=== PATIENT | male | born 1970 | race African-American/Black ===

== ENCOUNTER 2017-12-12 21:07 | Inpatient (IN) ==
[2017-12-12] MEDS ORDERED: Sod Chloride 0.9% Inj 1,000 ML IV.SIG ONE (21:31)
[2017-12-12] MEDS ORDERED: Aluminum/Magnesium/Simethacone Susp 30 ML UDC PO ONE (21:58)
--- NOTE | 2017-12-12 22:03 | XR ---
EXAM DATE: 12/12/2017 9:31 PM EDT AGE/SEX: 47 years / Male INDICATIONS: Chest pain starting today CLINICAL DATA: This is the patient's initial encounter. Patient reports that signs and symptoms have been present for 1 day and indicates a pain score of 8/10. MEDICAL/SURGICAL HISTORY: Chronic obstructive pulmonary disease. None. COMPARISON: No prior exams available for comparison. FINDINGS: A single AP view of the chest demonstrates the lungs to be symmetrically aerated without evidence of mass, infiltrate or effusion. The cardiomediastinal contours are unremarkable. Osseous structures a re intact. CONCLUSION: No acute cardiopulmonary process. Electronically signed by: Oneal Gomez MD 12/12/2017 10:02 PM EDT
[2017-12-12 22:10] LABS: Baso % (Auto) 0.5 % (0.0-2.0); Eos # (Auto) 0.1 th/mm3 (0.0-0.4); Eos % (Auto) 1.9 % (0.0-4.0); Hematocrit 43.8 % (39.0-51.0); Hemoglobin 14.8 gm/dL (13.0-17.0); Lymph # (Auto) 1.9 th/mm3 (1.0-4.8); Lymph % (Auto) 26.7 % (9.0-44.0); Mean Corpuscular HGB Conc 33.8 % (32.0-36.0); Mean Corpuscular Hemoglobin 27.4 pg (27.0-34.0); Mean Corpuscular Volume 81.1 fL (80.0-100.0); Mean Platelet Volume 8.1 fL (7.0-11.0); Mono # (Auto) 0.8 th/mm3 (0.0-0.9); Mono % (Auto) 10.7 % (0.0-8.0); Neut # (Auto) 4.4 th/mm3 (1.8-7.7); Neut % (Auto) 60.2 % (16.0-70.0); Platelet Count 247 th/mm3 (150-450); White Blood Count 7.2 th/mm3 (4.0-11.0)
[2017-12-12 22:26] LABS: Anion Gap 10 meq/L (5-15)
[2017-12-12 22:37] LABS: Alanine Aminotransferase 49 U/L (12-78); Alkaline Phosphatase 61 U/L (45-117); Aspartate Aminotransferase 25 U/L (15-37); Blood Urea Nitrogen 16 mg/dL (7-18); Calcium 9.2 mg/dL (8.5-10.1); Carbon Dioxide 28.7 meq/L (21.0-32.0); Chloride 99 meq/L (98-107); Glomerular Filtration Rate 88 mL/min (>89); Glucose,Random 94 mg/dL (74-106); Lipase 104 U/L (73-393); Magnesium 1.9 mg/dL (1.5-2.5); Sodium 138 meq/L (136-145); Total Protein 8.2 g/dL (6.4-8.2)
--- NOTE | 2017-12-12 22:38 | ED ---
HPI General Chief complaint: Abdominal Pain Stated complaint: Chest Pain Time Seen by Provider: 12/12/17 21:24 Source: patient Mode of arrival: EMS Limitations: no limitations History of Present Illness HPI narrative: 47 YO M with PMH of KERON, BPH, HTN presents to the ED via EMS for evaluation of epigastric pain. Sudden onset ~4pm today. Described as sharp. Accompanied by diaphoretic palms and SOB. He states that he was on a plane at the time. There was a doctor on board who evaluated him and gave him 2 aspirin. Upon landing and attempting to depart the aircraft the patient had an episode of 7/10 RLQ pain. This lasted a few minutes before resolving spontaneously. On presentation the patient states that the pain is "minimal." He denies recent history of fevers, chills, chest pain, palpitations, N/V, dysuria, hematuria, back pain. He is a nonsmoker. He states that he is noncompliant with his BiPap at night. He endorses fatal OH in a grandfather age~40. He endorses OH in a second grandfather later in life. He has never had a stress test. Related Data Home Medications Medication Instructions Recorded Confirmed amlodipine 10 mg PO DAILY 12/12/17 12/12/17 indapamide 2.5 mg PO QAM 12/12/17 12/12/17 potassium chloride 10 meq PO BID 12/12/17 12/12/17 tamsulosin [Flomax] 0.4 mg PO DAILY 12/12/17 12/12/17 Allergies Allergy/AdvReac Type Severity Reaction Status Date / Time SEAFOOD Allergy Anaphylaxis Uncoded 12/12/17 21:23 Review of Systems ROS: all other systems reviewed are negative FOR[facility]LY [facility] Medical History Medical History HTN (hypertension) (Acute) History of BPH (Acute) Surgical History Surgical History History of hernia repair (Acute) Social History Social History Substance History: No History of Abuse Second Hand Smoke Exposure: No Smoking Status: Never smoker How Often Do You Have a Drink Containing Alcohol: Monthly or less Recent Travel in [facility] within the Last 8 Weeks: No Recent Out of Country Travel within the Last 8 Weeks: No Immunization History Tetanus Immunization: >5 Years Exam Narrative Exam Narrative: GENERAL: Well-nourished, well-developed -[place] male no acute distress. SKIN: Focused skin assessment warm/dry. HEAD: Atraumatic. Normocephalic. EYES: Pupils equal and round. No scleral icterus. No injection or drainage. ENT: No nasal bleeding or discharge. Mucous membranes pink and moist. NECK: Trachea midline. No JVD. CARDIOVASCULAR: Regular rate and rhythm. No murmur appreciated. CHEST: Nontender throughout without deformity or crepitus. No retractions RESPIRATORY: No accessory muscle use. Clear to auscultation. Breath sounds equal bilaterally. GASTROINTESTINAL: Abdomen soft, nondistended. Hepatic and splenic margins not palpable. Mild tenderness to palpation of the left lower quadrant. Active bowel sounds. MUSCULOSKELETAL: No obvious deformities. No clubbing. No cyanosis. No edema. NEUROLOGICAL: Awake and alert. No obvious cranial nerve deficits. Motor grossly within normal limits. Normal speech. PSYCHIATRIC: Appropriate mood and affect; insight and judgment normal. Course Initial Documented Vital Signs Temperature 98.2 F 12/12/17 21:16 Pulse Rate 85 12/12/17 21:16 Respiratory Rate 16 12/12/17 21:16 Blood Pressure 145/85 H 12/12/17 21:16 Pulse Oximetry 100 12/12/17 21:16 Last Documented Vital Signs Temperature 97.5 F L 12/13/17 12:00 Pulse Rate 84 12/13/17 12:00 Respiratory Rate 16 12/13/17 12:00 Blood Pressure 130/78 12/13/17 12:00 Pulse Oximetry 96 12/13/17 12:00 Clinical Decision Support HEART Score Questions History: Moderately suspicious EKG: Non-specific repolarization disturbance Age: 45-64 years Risk Factors: 1-2 Risk Factors Initial Troponin: Normal Limit Heart Score HEART Score: 4 Medical Decision Making ANDREW Attestation ANDREW supervised visit: Yes Attestation: I was present with the advanced practitioner during the management of this patient. I discussed the case with the advanced practitioner and agree with the findings and plan as documented in their note except as noted below. 47yM brought in by EMS for chest pain. The patient states that he was on a plane (flew first from [place] to [place], then [place] to [facility]) when he began to have sudden-onset "pressure"-like chest pain which is substernal, constant, non-radiating, not made better or worse by anything, associated with nausea and diaphoresis. He states that a physician on the flight gave him 4 baby aspirin. When he stood up to walk off the plane, he had sudden-onset right lower quadrant "stabbing" pain which resolved after a few minutes. He denies history of DVT/PE, CAD, leg swelling or calf pain. History of HTN. Family history significant for parents with CAD, grandfather with OH in his late 40s. Patient has never seen a mri technologist. Well-appearing, no acute distress NCAT Trachea midline Regular rate and rhythm Lungs clear bilaterally Abdomen soft, moderate RLQ tenderness, no guarding or rebound No lower extremity edema or calf tenderness Skin warm and dry A&Ox3 Appropriate affect A/P: 47yM presenting with chest and abdominal pain EKG and monitor Labs CXR CT abd/ pelvis MDM Narrative Medical decision making narrative: 47 YO M with PMH of KERON, BPH, HTN presents to the ED via EMS for evaluation of epigastric pain followed shortly by a right lower quadrant pain. Minimal on presentation. Vitals reviewed. Physical exams reassuring. EKG without acute findings. Cardiac enzymes negative x1. Hypokalemia noted. Patient was administered p.o. and IV KCl. CT with enlarged prostate, possible bladder mass, possible liver hemangiomas. Plan to admit for observation, serial cardiac enzymes and EKGs. Given the hypocalcemia he will need to be admitted to the medicine service. I discussed all findings with the patient. He will be provided a copy of his CT report to take to his primary care provider. I discussed the patient with Dr. Kenny. He agrees to accept the patient to the medicine service. Please see medicine notes for disposition. Medical Screen Exam Complete: Yes Emergency Medical Condition: Yes Differential Diagnosis Differential Diagnosis: GERD versus CP versus ACS versus metabolic derangement versus other Lab Data Result diagrams: 12/13/17 08:59 12/13/17 02:40 Lab Results 12/12/17 12/12/17 12/12/17 Range/Units 21:42 21:42 21:42 WBC 7.2 (4.0-11.0) th/mm3 RBC 5.40 (4.50-5.90) mil/mm3 Hgb 14.8 (13.0-17.0) gm/dL Hct 43.8 (39.0-51.0) % MCV 81.1 (80.0-100.0) fL MCH 27.4 (27.0-34.0) pg MCHC 33.8 (32.0-36.0) % RDW 16.0 (11.6-17.2) % Plt Count 247 (150-450) th/mm3 MPV 8.1 (7.0-11.0) fL Neut % (Auto) 60.2 (16.0-70.0) % Lymph % (Auto) 26.7 (9.0-44.0) % [place] % (Auto) 10.7 H (0.0-8.0) % Eos % (Auto) 1.9 (0.0-4.0) % Baso % (Auto) 0.5 (0.0-2.0) % Neut # (Auto) 4.4 (1.8-7.7) th/mm3 Lymph # (Auto) 1.9 (1.0-4.8) th/mm3 [place] # (Auto) 0.8 (0.0-0.9) th/mm3 Eos # (Auto) 0.1 (0.0-0.4) th/mm3 Baso # (Auto) 0.0 (0.0-0.2) th/mm3 WBC Differential . Differential Comment Auto diff final D-Dimer Quant (PE/DVT) 0.26 (0.00-0.50) mg/L FEU Sodium 138 (136-145) meq/L Potassium 2.3 L* (3.5-5.1) meq/L Chloride 99 (98-107) meq/L Carbon Dioxide 28.7 (21.0-32.0) meq/L Anion Gap 10 (5-15) meq/L BUN 16 (7-18) mg/dL Creatinine 1.09 (0.60-1.30) mg/dL Estimated GFR 88 L (>89) mL/min Random Glucose 94 (74-106) mg/dL Calcium 9.2 (8.5-10.1) mg/dL Magnesium 1.9 (1.5-2.5) mg/dL Total Bilirubin 0.5 (0.2-1.0) mg/dL AST 25 (15-37) U/L ALT 49 (12-78) U/L Alkaline Phosphatase 61 (45-117) U/L Total Creatine Kinase (39-308) U/L Troponin I Less than 0.02 L (0.02-0.05) ng/mL Total Protein 8.2 (6.4-8.2) g/dL Albumin 4.0 (3.4-5.0) g/dL Triglycerides (42-150) mg/dL Cholesterol (120-200) mg/dL LDL Cholesterol, Calc (0-99) mg/dL HDL Cholesterol (40.0-60.0) mg/dL Cholesterol/HDL Ratio Ratio Lipase 104 (73-393) U/L 12/12/17 12/13/17 12/13/17 Range/Units 21:42 02:40 02:40 WBC (4.0-11.0) th/mm3 RBC (4.50-5.90) mil/mm3 Hgb (13.0-17.0) gm/dL Hct (39.0-51.0) % MCV (80.0-100.0) fL MCH (27.0-34.0) pg MCHC (32.0-36.0) % RDW (11.6-17.2) % Plt Count (150-450) th/mm3 MPV (7.0-11.0) fL Neut % (Auto) (16.0-70.0) % Lymph % (Auto) (9.0-44.0) % [place] % (Auto) (0.0-8.0) % Eos % (Auto) (0.0-4.0) % Baso % (Auto) (0.0-2.0) % Neut # (Auto) (1.8-7.7) th/mm3 Lymph # (Auto) (1.0-4.8) th/mm3 [place] # (Auto) (0.0-0.9) th/mm3 Eos # (Auto) (0.0-0.4) th/mm3 Baso # (Auto) (0.0-0.2) th/mm3 WBC Differential Differential Comment D-Dimer Quant (PE/DVT) (0.00-0.50) mg/L FEU Sodium 139 (136-145) meq/L Potassium 2.6 L* (3.5-5.1) meq/L Chloride 98 (98-107) meq/L Carbon Dioxide 34.8 H (21.0-32.0) meq/L Anion Gap 6 (5-15) meq/L BUN 13 (7-18) mg/dL Creatinine 1.04 (0.60-1.30) mg/dL Estimated GFR Greater than 89 (>89) mL/min Random Glucose 142 H (74-106) mg/dL Calcium 8.7 (8.5-10.1) mg/dL Magnesium Cancelled (1.5-2.5) mg/dL Total Bilirubin (0.2-1.0) mg/dL AST (15-37) U/L ALT (12-78) U/L Alkaline Phosphatase (45-117) U/L Total Creatine Kinase 186 194 (39-308) U/L Troponin I Less than 0.02 L (0.02-0.05) ng/mL Total Protein (6.4-8.2) g/dL Albumin (3.4-5.0) g/dL Triglycerides 119 (42-150) mg/dL Cholesterol 181 (120-200) mg/dL LDL Cholesterol, Calc 129 H (0-99) mg/dL HDL Cholesterol 28.5 L (40.0-60.0) mg/dL Cholesterol/HDL Ratio 6.35 Ratio Lipase (73-393) U/L 12/13/17 12/13/17 Range/Units 08:59 08:59 WBC 7.0 (4.0-11.0) th/mm3 RBC 5.09 (4.50-5.90) mil/mm3 Hgb 14.3 (13.0-17.0) gm/dL Hct 41.6 (39.0-51.0) % MCV 81.8 (80.0-100.0) fL MCH 28.1 (27.0-34.0) pg MCHC 34.3 (32.0-36.0) % RDW 15.9 (11.6-17.2) % Plt Count 236 (150-450) th/mm3 MPV 8.1 (7.0-11.0) fL Neut % (Auto) 70.3 H (16.0-70.0) % Lymph % (Auto) 20.2 (9.0-44.0) % [place] % (Auto) 7.6 (0.0-8.0) % Eos % (Auto) 1.5 (0.0-4.0) % Baso % (Auto) 0.4 (0.0-2.0) % Neut # (Auto) 4.9 (1.8-7.7) th/mm3 Lymph # (Auto) 1.4 (1.0-4.8) th/mm3 [place] # (Auto) 0.5 (0.0-0.9) th/mm3 Eos # (Auto) 0.1 (0.0-0.4) th/mm3 Baso # (Auto) 0.0 (0.0-0.2) th/mm3 WBC Differential . Differential Comment Auto diff final D-Dimer Quant (PE/DVT) (0.00-0.50) mg/L FEU Sodium (136-145) meq/L Potassium (3.5-5.1) meq/L Chloride (98-107) meq/L Carbon Dioxide (21.0-32.0) meq/L Anion Gap (5-15) meq/L BUN (7-18) mg/dL Creatinine (0.60-1.30) mg/dL Estimated GFR (>89) mL/min Random Glucose (74-106) mg/dL Calcium (8.5-10.1) mg/dL Magnesium 2.1 (1.5-2.5) mg/dL Total Bilirubin (0.2-1.0) mg/dL AST (15-37) U/L ALT (12-78) U/L Alkaline Phosphatase (45-117) U/L Total Creatine Kinase 177 (39-308) U/L Troponin I Less than 0.02 L (0.02-0.05) ng/mL Total Protein (6.4-8.2) g/dL Albumin (3.4-5.0) g/dL Triglycerides (42-150) mg/dL Cholesterol (120-200) mg/dL LDL Cholesterol, Calc (0-99) mg/dL HDL Cholesterol (40.0-60.0) mg/dL Cholesterol/HDL Ratio Ratio Lipase (73-393) U/L Imaging Data Radiologist's impression: Chest X-Ray 12/12/17 21:31 CONCLUSION: No acute cardiopulmonary process. Abdomen/Pelvis CT 12/12/17 22:24 CONCLUSION: 1. Mass at the posterior inferior bladder floor region representing either an impression from an enlarged prostate versus an intrinsic bladder mass. Urology consultation would be recommended. 2. Mild hepatic steatosis. There is a small hypodense mass at the inferior aspect of the right lobe liver which is too small to further characterize. It likely represents a small cyst or hemangioma. 3. Scattered colonic diverticula. ECG Data Attestation: I personally reviewed and interpreted this ECG as follows: Interpretation: Rate: 84 BPM Rhythm: Sinus [place]: Normal Intervals: Normal intervals, no blocks, QTc 440 ms Q waves: I and aVL T waves: Inverted in III ST segments: No elevations or depressions, concave in V2-V4 Impression: Non-specific EKG, no previous EKG available for comparison. Discharge Plan Discharge Disposition Patient Disposition: 30 Still Patient Physicians Team ED Provider: Zulma Schmidt ED Midlevel Provider: Yoly Ramos Primary Care Provider: Albin Issa III Attending Provider: Ricco Kenny Other Providers: Quique Dhaliwal Discharge Interventions Interventions: ED Discharge Assessment Last Done: 12/13/17 03:32 Status ED Status: Left Department Discharge Information Discharge Date/Time: 12/13/17 03:33
[2017-12-12 22:40] LABS: Potassium 2.3 meq/L (3.5-5.1)
[2017-12-12] MEDS: Potassium Chlor 20 mEq Premix 20 MEQ/100 ML PIGGYBACK IV.SIG SCH (23:54)
--- NOTE | 2017-12-13 | CT ---
EXAM DATE: 12/12/2017 11:09 PM EDT AGE/SEX: 47 years / Male INDICATIONS: Right lower quadrant pain. CLINICAL DATA: This is the patient's initial encounter. Patient reports that signs and symptoms have been present for 1 day and indicates a pain score of 8/10. MEDICAL/SURGICAL HISTORY: Hypertension. BPH. . Hernia repair. ORAL CONTRAST: No oral contrast ingested. RADIATION DOSE: 9.38 CTDI (mGy) COMPARISON: No prior exams available for comparison. TECHNIQUE: Multiple contiguous axial images were obtained through the abdomen and pelvis following b olus infusion of 95 ml Omnipaque 350 (iohexol) nonionic water-soluble contrast as a single exam dos e. No oral contrast ingested. Using automated exposure control and adjustment of the mA and/or kV ac cording to patient size, radiation dose was kept as low as reasonably achievable to obtain optimal di agnostic quality images. DICOM format image data is available electronically for review and comparis on. FINDINGS: Lower Lungs: The visualized lower lungs are clear. Liver: There is decreased attenuation to the liver. There is a 0.6 cm hypodense mass at the inferior medial aspect of the right lobe of the liver. The gallbladder is unremarkable. Spleen: Homogeneous density without enlargement. Pancreas: Unremarkable without mass or calcification. Kidneys: Normal in size and shape. No evidence of hydronephrosis. Small cysts are seen in the left k idney measuring up to 1.1 cm. Adrenal Glands: Unremarkable. Aorta: The aorta and proximal iliac vessels are grossly unremarkable without aneurysmal dilation. Bowel/Mesentery: There are scattered colonic diverticula without inflammatory change. The appendix a ppears normal. Abdominal Wall: Intact. Retroperitoneum: No evidence of adenopathy in the retrocrural, para-aortic, or deep pelvic regions. Bladder: There is a mass seen at the posterior inferior aspect of the bladder. This may be enlargeme nt of prostate impressing upon the bladder floor versus a intrinsic bladder mass. The soft tissue den sity at the bladder floor measures 4.7 x 3.5 x 3.1 cm. Reproductive Organs: Prostate appears enlarged. The mass at the bladder floor may be secondary to pr ostatic hypertrophy. Inguinal: The inguinal region is unremarkable without evidence of adenopathy. Bony Structures: Unremarkable. CONCLUSION: 1. Mass at the posterior inferior bladder floor region representing either an impression from an enl arged prostate versus an intrinsic bladder mass. Urology consultation would be recommended. 2. Mild hepatic steatosis. There is a small hypodense mass at the inferior aspect of the right lobe liver which is too small to further characterize. It likely represents a small cyst or hemangioma. 3. Scattered colonic diverticula. Electronically signed by: Naun Shearer MD 12/12/2017 11:59 PM EDT
[2017-12-13 04:00] LABS: Anion Gap 6 meq/L (5-15); Blood Urea Nitrogen 13 mg/dL (7-18); Calcium 8.7 mg/dL (8.5-10.1); Carbon Dioxide 34.8 meq/L (21.0-32.0); Chloride 98 meq/L (98-107); Chol/HDL Ratio 6.35 Ratio; Cholesterol 181 mg/dL (120-200); Creatine Kinase 194 U/L (39-308); Glomerular Filtration Rate Greater Than 89 mL/min (>89); Glucose,Random 142 mg/dL (74-106); HDL Cholesterol 28.5 mg/dL (40.0-60.0); LDL Cholesterol,Calculated 129 mg/dL (0-99); Sodium 139 meq/L (136-145); Triglycerides 119 mg/dL (42-150)
[2017-12-13 04:05] LABS: Potassium 2.6 meq/L (3.5-5.1)
[2017-12-13] MEDS: Potassium Chlor 20 mEq Premix 20 MEQ/100 ML PIGGYBACK IV.SIG SCH ×3 (04:41→11:29)
[2017-12-13] MEDS: Potassium Chloride 10 MEQ ER Capsule PO SCH ×2 (08:20→20:09)
[2017-12-13] MEDS: Aspirin 325 MG Tablet PO SCH (08:21)
[2017-12-13] MEDS: amLODIPine 10 MG Tablet PO SCH (08:21)
[2017-12-13 09:33] LABS: Baso % (Auto) 0.4 % (0.0-2.0); Eos # (Auto) 0.1 th/mm3 (0.0-0.4); Eos % (Auto) 1.5 % (0.0-4.0); Hematocrit 41.6 % (39.0-51.0); Hemoglobin 14.3 gm/dL (13.0-17.0); Lymph # (Auto) 1.4 th/mm3 (1.0-4.8); Lymph % (Auto) 20.2 % (9.0-44.0); Mean Corpuscular HGB Conc 34.3 % (32.0-36.0); Mean Corpuscular Hemoglobin 28.1 pg (27.0-34.0); Mean Corpuscular Volume 81.8 fL (80.0-100.0); Mean Platelet Volume 8.1 fL (7.0-11.0); Mono # (Auto) 0.5 th/mm3 (0.0-0.9); Mono % (Auto) 7.6 % (0.0-8.0); Neut # (Auto) 4.9 th/mm3 (1.8-7.7); Neut % (Auto) 70.3 % (16.0-70.0); Platelet Count 236 th/mm3 (150-450); Red Blood Count 5.09 mil/mm3 (4.50-5.90); Red Cell Distribution Width 15.9 % (11.6-17.2)
[2017-12-13 09:52] LABS: Magnesium 2.1 mg/dL (1.5-2.5)
[2017-12-13 09:54] LABS: Creatine Kinase 177 U/L (39-308)
--- NOTE | 2017-12-13 09:59 | P.HP ---
<Uma Dueñas - Last Filed: 12/13/17 18:11> History of Present Illness Primary Care Physician: Albin Issa III, MD Chief Complaint: sharp epigastric pain accompanied by diaphoretic palms and SOB History of Present Illness: This is a 47-year-old male with a past medical history which includes KERON ( reports being noncompliant with his BiPap), BPH, HTN presented to the ED via EMS for evaluation of midsternal/epigastric pain. Patient reports that the midsternal/epigastric pain started while he was flying home from [place] [facility] began suddenly ~4pm 12/12. Described as sharp and squeezing. Accompanied by diaphoretic palms and SOB. There was a doctor on board who evaluated him and gave him 2 aspirin. Upon landing and attempting to depart the aircraft the patient had an episode of 7/10 RLQ pain. This lasted a few minutes before resolving spontaneously. On presentation the patient states that the pain is "minimal." He denies recent history of fevers, chills, chest pain, palpitations, N/V, dysuria, hematuria, back pain. He is a nonsmoker. He endorses fatal MN in a grandfather age~40. He endorses MN in a second grandfather later in life. He has never had a stress test. PMH: KERON (reports being noncompliant with his BiPap), BPH, HTN PSxH: Hernia repair FMH: fatal MN in a grandfather age~40. He endorses MN in a second grandfather later in life Social History: Occasional EtOH use approximately once per month Lifelong non-smoker - Diagnosis (1) Chest pain Inpatient Certification: I certify that the inpatient services were ordered in accordance with Medicare regulations governing the order. This includes certification that hospital inpatient services are reasonable and necessary and in the case of services not specified as inpatient-only under 42 CFR 419.22(n), that they are appropriately provided as inpatient services in accordance to with the 2-midnight benchmark under 43 CFR 412.3(e) Estimated Total Length of Stay (Days): 3 Plans for Post Hospital Care: Home Review of Systems All other systems reviewed negative except as stated in HPI [facility] - History History Provided By: Patient, Family Member - Medical History Medical History: Medical History (Last Reviewed 12/13/17 @ 00:50 by EMY Brennan) HTN (hypertension) History of BPH - Surgical History Surgical History: Surgical History (Last Reviewed 12/13/17 @ 00:50 by EMY Brennan) History of hernia repair - Tobacco History Second Hand Smoke Exposure: No Smoking Status: Never smoker - Alcohol History How Often Do You Have a Drink Containing Alcohol: Monthly or less - Substance Use History Substance History: No History of Abuse - Travel History Recent Travel in the [place] Within the Last 8 Weeks: No Recent Travel Out of the Country Within the Last 8 Weeks: No - Immunization History Tetanus Immunization: <5 Years Hx Influenza Vaccine This Season: No Medications and Allergies Allergies Allergy/AdvReac Type Severity Reaction Status Date / Time SEAFOOD Allergy Anaphylaxis Uncoded 12/12/17 21:23 Home Medications Medication Instructions Recorded Confirmed Type amlodipine 10 mg PO DAILY 12/12/17 12/12/17 History tamsulosin [Flomax] 0.4 mg PO DAILY 12/12/17 12/12/17 History Active Medications: Active Medications Amlodipine Besylate (Norvasc) 10 mg PO DAILY [facility] Last Admin: 12/13/17 08:21 Dose: 10 mg Aspirin (Aspirin) 325 mg PO DAILY [facility] Last Admin: 12/13/17 08:21 Dose: 325 mg Nitroglycerin (Nitrostat Sl) 0.4 mg SL Q5M PRN PRN Reason: ANGINA Pantoprazole Sodium (Protonix) 40 mg PO DAILY [facility] Last Admin: 12/13/17 08:21 Dose: 40 mg Potassium Chloride (Kcl) 10 meq PO BID [facility] Last Admin: 12/13/17 08:20 Dose: 10 meq Sodium Chloride (Ns Flush) 2 ml IV.FLUSH BID [facility] Last Admin: 12/13/17 08:48 Dose: Not Given Sodium Chloride (Ns Flush) 2 ml IV.FLUSH PRN PRN PRN Reason: FLUSH AFTER USING IV ACCESS Sodium Chloride (Ns Flush) 2 ml IV.FLUSH BID [facility] Last Admin: 12/13/17 08:48 Dose: Not Given Sodium Chloride (Ns Flush) 2 ml IV.FLUSH PRN PRN PRN Reason: FLUSH AFTER USING IV ACCESS Tamsulosin HCl (Flomax) 0.4 mg PO DAILY [facility] Last Admin: 12/13/17 08:21 Dose: 0.4 mg Temazepam (Restoril) 15 mg PO HS PRN PRN Reason: INSOMNIA Exam Vital signs: Vital Signs 12/12/17 21:16 12/12/17 23:54 12/13/17 03:38 Temperature 98.2 F 98.4 F Pulse Rate 85 83 77 Respiratory Rate 16 18 16 Blood Pressure 145/85 H 127/83 133/94 H Pulse Oximetry 100 97 96 12/13/17 04:00 12/13/17 05:00 12/13/17 06:00 Temperature Pulse Rate 86 76 74 Respiratory Rate Blood Pressure Pulse Oximetry 12/13/17 07:00 Temperature Pulse Rate 82 Respiratory Rate Blood Pressure Pulse Oximetry Intake & Output 12/12/17 12/13/17 12/13/17 18:59 06:59 18:59 Intake Total 1220 / 1220 100 / 100 Output Total 650 / 650 Balance 570 / 570 100 / 100 Weight 89.9 kg Intake: IV 1100 / 1100 100 / 100 KCl 20 mEq Premix Inj 20 meq In 100 / 100 100 / 100 100 ml @ 50 mls/hr IV.SIG Q2H LEO Rx#:[id number] NS Inj 1,000 ML @ Wide Open IV. 1000 / 1000 SIG BOLUS ONE Rx#:[id number] Oral 120 / 120 Output: Urine 650 / 650 Other: Date of Last Bowel Movement 12/13/17 Narrative: GENERAL: This is a well-nourished, well-developed patient, in no apparent distress. CARDIOVASCULAR: Regular rate and rhythm without murmurs, gallops, or rubs. RESPIRATORY: Clear to auscultation. Breath sounds equal bilaterally. No wheezes , rales, or rhonchi. GASTROINTESTINAL: Abdomen soft, non-tender, nondistended. Normal active bowel sounds MUSCULOSKELETAL: Extremities without clubbing, cyanosis, or edema. NEURO: Alert & Oriented x4 to person, place, time, situation. Moves all ext x4 Results - Labs CBC & Chem 7: 12/13/17 08:59 12/13/17 12:44 Labs: Laboratory Results - last 24 hr 12/12/17 12/12/17 12/12/17 21:42 21:42 21:42 WBC 7.2 RBC 5.40 Hgb 14.8 Hct 43.8 MCV 81.1 MCH 27.4 MCHC 33.8 RDW 16.0 Plt Count 247 MPV 8.1 Neut % (Auto) 60.2 Lymph % (Auto) 26.7 [place] % (Auto) 10.7 H Eos % (Auto) 1.9 Baso % (Auto) 0.5 Neut # (Auto) 4.4 Lymph # (Auto) 1.9 [place] # (Auto) 0.8 Eos # (Auto) 0.1 Baso # (Auto) 0.0 WBC Differential . Differential Comment Auto diff final D-Dimer Quant (PE/DVT) 0.26 Sodium 138 Potassium 2.3 L* Chloride 99 Carbon Dioxide 28.7 Anion Gap 10 BUN 16 Creatinine 1.09 Estimated GFR 88 L Random Glucose 94 Calcium 9.2 Magnesium 1.9 Total Bilirubin 0.5 AST 25 ALT 49 Alkaline Phosphatase 61 Total Creatine Kinase Troponin I Less than 0.02 L Total Protein 8.2 Albumin 4.0 Triglycerides Cholesterol LDL Cholesterol, Calc HDL Cholesterol Cholesterol/HDL Ratio Lipase 104 12/12/17 12/13/17 12/13/17 21:42 02:40 02:40 WBC RBC Hgb Hct MCV MCH MCHC RDW Plt Count MPV Neut % (Auto) Lymph % (Auto) [place] % (Auto) Eos % (Auto) Baso % (Auto) Neut # (Auto) Lymph # (Auto) [place] # (Auto) Eos # (Auto) Baso # (Auto) WBC Differential Differential Comment D-Dimer Quant (PE/DVT) Sodium 139 Potassium 2.6 L* Chloride 98 Carbon Dioxide 34.8 H Anion Gap 6 BUN 13 Creatinine 1.04 Estimated GFR Greater than 89 Random Glucose 142 H Calcium 8.7 Magnesium Cancelled Total Bilirubin AST ALT Alkaline Phosphatase Total Creatine Kinase 186 194 Troponin I Less than 0.02 L Total Protein Albumin Triglycerides 119 Cholesterol 181 LDL Cholesterol, Calc 129 H HDL Cholesterol 28.5 L Cholesterol/HDL Ratio 6.35 Lipase 12/13/17 08:59 WBC 7.0 RBC 5.09 Hgb 14.3 Hct 41.6 MCV 81.8 MCH 28.1 MCHC 34.3 RDW 15.9 Plt Count 236 MPV 8.1 Neut % (Auto) 70.3 H Lymph % (Auto) 20.2 [place] % (Auto) 7.6 Eos % (Auto) 1.5 Baso % (Auto) 0.4 Neut # (Auto) 4.9 Lymph # (Auto) 1.4 [place] # (Auto) 0.5 Eos # (Auto) 0.1 Baso # (Auto) 0.0 WBC Differential . Differential Comment Auto diff final D-Dimer Quant (PE/DVT) Sodium Potassium Chloride Carbon Dioxide Anion Gap BUN Creatinine Estimated GFR Random Glucose Calcium Magnesium Total Bilirubin AST ALT Alkaline Phosphatase Total Creatine Kinase Troponin I Total Protein Albumin Triglycerides Cholesterol LDL Cholesterol, Calc HDL Cholesterol Cholesterol/HDL Ratio Lipase - Imaging Impressions Chest X-Ray 12/12/17 21:31 CONCLUSION: No acute cardiopulmonary process. Abdomen/Pelvis CT 12/12/17 22:24 CONCLUSION: 1. Mass at the posterior inferior bladder floor region representing either an impression from an enlarged prostate versus an intrinsic bladder mass. Urology consultation would be recommended. 2. Mild hepatic steatosis. There is a small hypodense mass at the inferior aspect of the right lobe liver which is too small to further characterize. It likely represents a small cyst or hemangioma. 3. Scattered colonic diverticula. Caprini VTE Risk Assessment Caprini VTE Risk Assessment: No/Low Risk (score <= 1) Caprini Risk Assessment Model: Point Value = 1 Point Value = 2 Point Value = 3 Point Value = 5 Age 41-60 Minor surgery BMI > 25 kg/m2 Swollen legs Varicose veins or History of unexplained or recurrent spontaneous Oral contraceptives or hormone replacement Sepsis (< 1 month) Serious lung disease, including pneumonia (< 1 month) Abnormal pulmonary function Acute myocardial infarction Congestive heart failure (< 1 month) History of inflammatory bowel disease Medical patient at bed rest Age 61-74 Arthroscopic surgery Major open surgery (> 45 min) Laparoscopic surgery (> 45 min) Malignancy Confined to bed (> 72 hours) Immobilizing plaster cast Central venous access Age >= 75 History of VTE Family history of VTE Factor V Leiden Prothrombin [id number] Lupus anticoagulant Anticardiolipin antibodies Elevated serum homocysteine Heparin-induced thrombocytopenia Other congenital or acquired thrombophilia Stroke (< 1 month) Elective arthroplasty Hip, pelvis, or leg fracture Acute spinal cord injury (< 1 month) Prophylaxis Regimen: Total Risk Factor Score Risk Level Prophylaxis Regimen 0-1 Low Early ambulation 2 Moderate Order ONE of the following: *Sequential Compression Device (SCD) *Heparin 5000 units SQ BID 3-4 Higher Order ONE of the following medications: *Heparin 5000 units SQ TID *Enoxaparin/Lovenox 40 mg SQ daily (WT < 150 kg, CrCl > 30 mL/min) *Enoxaparin/Lovenox 30 mg SQ daily (WT < 150 kg, CrCl > 10-29 mL/min) *Enoxaparin/Lovenox 30 mg SQ BID (WT < 150 kg, CrCl > 30 mL/min) AND/OR *Sequential Compression Device (SCD) 5 or more Highest Order ONE of the following medications: *Heparin 5000 units SQ TID (Preferred with Epidurals) *Enoxaparin/Lovenox 40 mg SQ daily (WT < 150 kg, CrCl > 30 mL/min) *Enoxaparin/Lovenox 30 mg SQ daily (WT < 150 kg, CrCl > 10-29 mL/min) *Enoxaparin/Lovenox 30 mg SQ BID (WT < 150 kg, CrCl > 30 mL/min) AND *Sequential Compression Device (SCD) Assessment and Plan - Assessment (1) Chest pain Code(s): R07.9 - Chest pain, unspecified Status: Acute Plan: This is a 47-year-old male with a past medical history which includes KERON ( reports being noncompliant with his BiPap), BPH, HTN presented to the ED via EMS for evaluation of midsternal/epigastric pain. Patient reports that the midsternal/epigastric pain started while he was flying home [place] [facility] began suddenly ~4pm 12/12. Described as sharp and squeezing. Accompanied by diaphoretic palms and SOB. There was a doctor on board who evaluated him and gave him 2 aspirin. Upon landing and attempting to depart the aircraft the patient had an episode of 7/10 RLQ pain. This lasted a few minutes before resolving spontaneously. On presentation the patient states that the pain is "minimal." He denies recent history of fevers, chills, chest pain, palpitations, N/V, dysuria, hematuria, back pain. He is a nonsmoker. He endorses fatal MN in a grandfather age~40. He endorses MN in a second grandfather later in life. He has never had a stress test. Chest pain Family history of MN at a young age Chest X-Ray 12/12/17 No acute cardiopulmonary process serial troponin troponin < 0.02 x 3 Initial EKG SR rate [address] Chest pain resolved plan for exercise stress test in AM Hypokalemia potassium 2.3 on admission -> 2.9 (12/13) Hold patient's home dieretic potassium replaced recheck in AM KERON Patient may use home BiPapa BPH Continue home Tamsulosin HTN Continue home amlodipine Abnormal CT scan reviewed and reveals: 1. Mass at the posterior inferior bladder floor region representing either an impression from an enlarged prostate versus an intrinsic bladder mass. Urology consultation would be recommended. 2. Mild hepatic steatosis. There is a small hypodense mass at the inferior aspect of the right lobe liver which is too small to further characterize. It likely represents a small cyst or hemangioma. 3. Scattered colonic diverticula. Consult to urology. Urology recommending follow up as outpatient <Ricco Kenny - Last Filed: 12/16/17 08:24> History of Present Illness Primary Care Physician: Albin Issa III, MD - Diagnosis (1) Chest pain Inpatient Certification: I certify that the inpatient services were ordered in accordance with Medicare regulations governing the order. This includes certification that hospital inpatient services are reasonable and necessary and in the case of services not specified as inpatient-only under 42 CFR 419.22(n), that they are appropriately provided as inpatient services in accordance to with the 2-midnight benchmark under 43 CFR 412.3(e) [facility] - Medical History Medical History: Medical History (Last Reviewed 12/13/17 @ 00:50 by EMY Brennan) HTN (hypertension) History of BPH - Surgical History Surgical History: Surgical History (Last Reviewed 12/13/17 @ 00:50 by EMY Brennan) History of hernia repair Exam Vital signs: Vital Signs 12/15/17 09:00 12/15/17 09:32 12/15/17 09:33 Temperature Pulse Rate 71 70 Respiratory Rate Blood Pressure Pulse Oximetry 97 12/15/17 11:00 12/15/17 12:00 Temperature 98.0 F Pulse Rate 89 85 Respiratory Rate 18 Blood Pressure 142/87 H Pulse Oximetry 96 Intake & Output 12/15/17 12/16/17 12/16/17 18:59 06:59 18:59 Other: Date of Last Bowel Movement 12/14/17 Results - Labs CBC & Chem 7: 12/13/17 08:59 12/15/17 06:13 Caprini VTE Risk Assessment Caprini Risk Assessment Model: Point Value = 1 Point Value = 2 Point Value = 3 Point Value = 5 Age 41-60 Minor surgery BMI > 25 kg/m2 Swollen legs Varicose veins or History of unexplained or recurrent spontaneous Oral contraceptives or hormone replacement Sepsis (< 1 month) Serious lung disease, including pneumonia (< 1 month) Abnormal pulmonary function Acute myocardial infarction Congestive heart failure (< 1 month) History of inflammatory bowel disease Medical patient at bed rest Age 61-74 Arthroscopic surgery Major open surgery (> 45 min) Laparoscopic surgery (> 45 min) Malignancy Confined to bed (> 72 hours) Immobilizing plaster cast Central venous access Age >= 75 History of VTE Family history of VTE Factor V Leiden Prothrombin [id number] Lupus anticoagulant Anticardiolipin antibodies Elevated serum homocysteine Heparin-induced thrombocytopenia Other congenital or acquired thrombophilia Stroke (< 1 month) Elective arthroplasty Hip, pelvis, or leg fracture Acute spinal cord injury (< 1 month) Prophylaxis Regimen: Total Risk Factor Score Risk Level Prophylaxis Regimen 0-1 Low Early ambulation 2 Moderate Order ONE of the following: *Sequential Compression Device (SCD) *Heparin 5000 units SQ BID 3-4 Higher Order ONE of the following medications: *Heparin 5000 units SQ TID *Enoxaparin/Lovenox 40 mg SQ daily (WT < 150 kg, CrCl > 30 mL/min) *Enoxaparin/Lovenox 30 mg SQ daily (WT < 150 kg, CrCl > 10-29 mL/min) *Enoxaparin/Lovenox 30 mg SQ BID (WT < 150 kg, CrCl > 30 mL/min) AND/OR *Sequential Compression Device (SCD) 5 or more Highest Order ONE of the following medications: *Heparin 5000 units SQ TID (Preferred with Epidurals) *Enoxaparin/Lovenox 40 mg SQ daily (WT < 150 kg, CrCl > 30 mL/min) *Enoxaparin/Lovenox 30 mg SQ daily (WT < 150 kg, CrCl > 10-29 mL/min) *Enoxaparin/Lovenox 30 mg SQ BID (WT < 150 kg, CrCl > 30 mL/min) AND *Sequential Compression Device (SCD) Assessment and Plan - Assessment (1) Chest pain Code(s): R07.9 - Chest pain, unspecified Status: Acute - Attending Attestation The exam, history, and the medical decision-making described in the above note were completed with the assistance of the mid-level provider. I reviewed and agree with the findings presented. I attest that I had a [id number] encounter with the patient on the same day, and personally performed and documented my assessment and findings in the medical record. Patient examined. Assessment and plan formulated with Uma Dueñas PA-C. I agree with the above.
[2017-12-13] MEDS ORDERED: Potassium Chlor 20 mEq Premix 20 MEQ/100 ML PIGGYBACK IV.SIG ONE (10:01)
--- NOTE | 2017-12-13 12:58 | ECHRPT ---
Indication: chest pain CONCLUSIONS Normal left ventricular size. Wall thickness is normal. The left ventricular systolic function is normal with an estimated ejection fraction in the range of 55-60%. No regional wall motion abnormalities are present. There is mild tricuspid valve regurgitation. The estimated pulmonary arterial pressure is 31 mmHg. BP: / HR: Rhythm: MEASUREMENTS (Male / Female) Normal Values Technical Quality: 2D ECHO LV Diastolic Diameter PLAX 4.5 cm 4.2 - 5.9 / 3.9 - 5.3 cm LV Systolic Diameter PLAX 3.5 cm IVS Diastolic Thickness 1.1 cm 0.6 - 1.0 / 0.6 - 0.9 cm LVPW Diastolic Thickness 1.2 cm 0.6 - 1.0 / 0.6 - 0.9 cm LV Relative Wall Thickness 0.5 RV Internal Dim ED PLAX 2.8 cm LVOT Diameter 2.1 cm Aortic Root Diameter 3.1 cm LA Systolic Diameter LX 3.2 cm 3.0 - 4.0 / 2.7 - 3.8 cm LV Ejection Fraction MOD BP 57.7 % >= 55 % LV Ejection Fraction MOD 4C 57.6 % LV Ejection Fraction 4C AL 58.8 % LV Ejection Fraction MOD 2C 56.9 % LV Ejection Fraction 2C AL 59.2 % M-MODE Aortic Root Diameter MM 3.5 cm LA Systolic Diameter MM 3.4 cm LA Ao Ratio MM 1.0 AV Cusp Separation MM 1.7 cm DOPPLER AV Peak Velocity 131.0 cm/s AV Peak Gradient 6.9 mmHg LVOT Peak Velocity 90.3 cm/s LVOT Peak Gradient 3.3 mmHg AV Area Cont Eq pk 2.4 cm Mitral E Point Velocity 67.1 cm/s Mitral A Point Velocity 83.9 cm/s Mitral E to A Ratio 0.8 LV E' Lateral Velocity 7.1 cm/s Mitral E to LV E' Lateral Ratio 9.4 LV E' Septal Velocity 5.5 cm/s Mitral E to LV E' Septal Ratio 12.3 TR Peak Velocity 227.0 cm/s TR Peak Gradient 20.6 mmHg Right Atrial Pressure 10.0 mmHg Pulmonary Artery Systolic Pressu 30.6 mmHg Right Ventricular Systolic Press 30.6 mmHg PV Peak Velocity 107.0 cm/s PV Peak Gradient 4.6 mmHg FINDINGS LEFT VENTRICLE Normal left ventricular size. Wall thickness is normal. The left ventricular systolic function is normal with an estimated ejection fraction in the range of 55-60%. No regional wall motion abnormalities are present. RIGHT VENTRICLE Normal right ventricular size and systolic function. LEFT ATRIUM The left atrial size is normal. RIGHT ATRIUM The right atrial size is normal. ATRIAL SEPTUM Normal atrial septal thickness without atrial level shunting by limited color doppler interrogation. AORTA The aortic root and proximal ascending aorta are normal in size on limited imaging. MITRAL VALVE Structurally normal mitral valve. No mitral valve stenosis or regurgitation. AORTIC VALVE Trileaflet aortic valve. No aortic valve stenosis or regurgitation. TRICUSPID VALVE There is mild tricuspid valve regurgitation. The estimated pulmonary arterial pressure is 31 mmHg. PULMONARY VALVE No pulmonary valve regurgitation or stenosis. VESSELS The inferior vena cava is normal in size. PERICARDIUM No pericardial effusion. Herb Morales (Electronically Signed) Final Date:13 December 2017 12:57
--- NOTE | 2017-12-13 13:13 | ECG ---
Date Performed: 12/12/2017 Time Performed: 21:17:51 PTAGE: 47 years EKG: Sinus rhythm POSSIBLE LEFT ATRIAL ENLARGEMENT POSSIBLE LEFT VENTRICULAR HYPERTROPHY NONSPECIFIC ST & T-WAVE ABNOR MALITY ABNORMAL ECG Anterior ST elevation cannot rule out injury Clinical correlation is recommended NO PREVIOUS TRACING DOCTOR: Santiago Garcia Interpretating Date/Time 12/13/2017 13:13:09
--- NOTE | 2017-12-13 13:15 | ECG ---
Date Performed: 12/13/2017 Time Performed: 06:14:46 PTAGE: 47 years EKG: Sinus rhythm Inferior T wave changes are nonspecific persistent ST elevation possibly early repolarization Clinic al correlation is recommended Borderline ECG PREVIOUS TRACING : 12/12/17 DOCTOR: Santiago Garcia Interpretating Date/Time 12/13/2017 13:13:55
--- NOTE | 2017-12-13 14:08 | P.CONURO ---
History of Present Illness Service: Urology Consult date: 12/13/17 Requesting Physician: Uma Dueñas Reason for Consult: Possible bladder mass Primary Care Provider: Albin Issa III, MD Chief Complaint: sharp epigastric pain accompanied by diaphoretic palms and SOB History of Present Illness: This is a 47-year-old male with a past medical history which includes KERON ( reports being noncompliant with his BiPap), BPH, HTN presents to the ED via EMS for evaluation of epigastric pain. Sudden onset ~4pm yesterday. Described as sharp. Accompanied by diaphoretic palms and SOB. He states that he was on a plane at the time. There was a doctor on board who evaluated him and gave him 2 aspirin. Upon landing and attempting to depart the aircraft the patient had an episode of 7/10 RLQ pain. This lasted a few minutes before resolving spontaneously. On presentation the patient states that the pain is "minimal." He denies recent history of fevers, chills, chest pain, palpitations, N/V, dysuria, hematuria, back pain. He is a nonsmoker. Low potassium on his labs. Urology consulted for possible bladder mass on CT. He has no hematuria, no f/c/n /v. No kidneys issues on CT. Cr is normal. He admits that has BPH with LUTS and takes Flomax for it Review of Systems All other systems reviewed negative except as stated in HPI PMFSH - History History Provided By: Patient, Family Member - Medical History Medical History: Medical History (Last Reviewed 12/13/17 @ 00:50 by EMY Brennan) HTN (hypertension) History of BPH - Surgical History Surgical History: Surgical History (Last Reviewed 12/13/17 @ 00:50 by EMY Brennan) History of hernia repair - Tobacco History Second Hand Smoke Exposure: No Smoking Status: Never smoker - Alcohol History How Often Do You Have a Drink Containing Alcohol: Monthly or less - Substance Use History Substance History: No History of Abuse - Travel History Recent Travel in the [place] Within the Last 8 Weeks: No Recent Travel Out of the Country Within the Last 8 Weeks: No - Immunization History Tetanus Immunization: >5 Years Hx Influenza Vaccine This Season: No Medications and Allergies Active Medications: Active Medications Amlodipine Besylate (Norvasc) 10 mg PO DAILY [facility] Last Admin: 12/13/17 08:21 Dose: 10 mg Aspirin (Aspirin) 325 mg PO DAILY [facility] Last Admin: 12/13/17 08:21 Dose: 325 mg Nitroglycerin (Nitrostat Sl) 0.4 mg SL Q5M PRN PRN Reason: ANGINA Pantoprazole Sodium (Protonix) 40 mg PO DAILY [facility] Last Admin: 12/13/17 08:21 Dose: 40 mg Potassium Chloride (Kcl) 10 meq PO BID [facility] Last Admin: 12/13/17 08:20 Dose: 10 meq Sodium Chloride (Ns Flush) 2 ml IV.FLUSH BID [facility] Last Admin: 12/13/17 08:48 Dose: Not Given Sodium Chloride (Ns Flush) 2 ml IV.FLUSH PRN PRN PRN Reason: FLUSH AFTER USING IV ACCESS Sodium Chloride (Ns Flush) 2 ml IV.FLUSH BID [facility] Last Admin: 12/13/17 08:48 Dose: Not Given Sodium Chloride (Ns Flush) 2 ml IV.FLUSH PRN PRN PRN Reason: FLUSH AFTER USING IV ACCESS Tamsulosin HCl (Flomax) 0.4 mg PO DAILY [facility] Last Admin: 12/13/17 08:21 Dose: 0.4 mg Temazepam (Restoril) 15 mg PO HS PRN PRN Reason: INSOMNIA Allergies Allergy/AdvReac Type Severity Reaction Status Date / Time SEAFOOD Allergy Anaphylaxis Uncoded 12/12/17 21:23 Home Medications Medication Instructions Recorded Confirmed Type amlodipine 10 mg PO DAILY 12/12/17 12/12/17 History indapamide 2.5 mg PO QAM 12/12/17 12/12/17 History potassium chloride 10 meq PO BID 12/12/17 12/12/17 History tamsulosin [Flomax] 0.4 mg PO DAILY 12/12/17 12/12/17 History Physical Exam Vital Signs - 24 hr 12/12/17 21:16 12/12/17 23:54 12/13/17 03:38 Temperature 98.2 F 98.4 F Pulse Rate 85 83 77 Respiratory Rate 16 18 16 Blood Pressure 145/85 H 127/83 133/94 H Pulse Oximetry 100 97 96 12/13/17 04:00 12/13/17 05:00 12/13/17 06:00 Temperature Pulse Rate 86 76 74 Respiratory Rate Blood Pressure Pulse Oximetry 12/13/17 07:00 12/13/17 08:00 12/13/17 09:00 Temperature 98.3 F Pulse Rate 82 72 84 Respiratory Rate 16 Blood Pressure 130/89 Pulse Oximetry 95 12/13/17 10:00 12/13/17 11:00 12/13/17 11:14 Temperature Pulse Rate 126 H 96 H Respiratory Rate Blood Pressure Pulse Oximetry 96 12/13/17 12:00 12/13/17 13:00 Temperature 97.5 F L Pulse Rate 84 82 Respiratory Rate 16 Blood Pressure 130/78 Pulse Oximetry 96 Physical Exam: GENERAL: This is a well-nourished, well-developed patient, in no apparent distress. SKIN: No rashes, ecchymoses or lesions. Cool and dry. HEAD: Atraumatic. Normocephalic CARDIOVASCULAR: Regular rate and rhythm without murmurs, gallops, or rubs. RESPIRATORY: Clear to auscultation. Breath sounds equal bilaterally. No wheezes , rales, or rhonchi. GASTROINTESTINAL: Abdomen soft, non-tender, nondistended. GENITOURINARY:No CVAT, Bladder is not distended MUSCULOSKELETAL: Extremities without clubbing, cyanosis, or edema. NEUROLOGICAL: Awake and alert. Laboratory Results - last 24 hr 12/12/17 12/12/17 12/12/17 21:42 21:42 21:42 WBC 7.2 RBC 5.40 Hgb 14.8 Hct 43.8 MCV 81.1 MCH 27.4 MCHC 33.8 RDW 16.0 Plt Count 247 MPV 8.1 Neut % (Auto) 60.2 Lymph % (Auto) 26.7 [place] % (Auto) 10.7 H Eos % (Auto) 1.9 Baso % (Auto) 0.5 Neut # (Auto) 4.4 Lymph # (Auto) 1.9 [place] # (Auto) 0.8 Eos # (Auto) 0.1 Baso # (Auto) 0.0 WBC Differential . Differential Comment Auto diff final D-Dimer Quant (PE/DVT) 0.26 Sodium 138 Potassium 2.3 L* Chloride 99 Carbon Dioxide 28.7 Anion Gap 10 BUN 16 Creatinine 1.09 Estimated GFR 88 L Random Glucose 94 Calcium 9.2 Magnesium 1.9 Total Bilirubin 0.5 AST 25 ALT 49 Alkaline Phosphatase 61 Total Creatine Kinase Troponin I Less than 0.02 L Total Protein 8.2 Albumin 4.0 Triglycerides Cholesterol LDL Cholesterol, Calc HDL Cholesterol Cholesterol/HDL Ratio Lipase 104 12/12/17 12/13/17 12/13/17 21:42 02:40 02:40 WBC RBC Hgb Hct MCV MCH MCHC RDW Plt Count MPV Neut % (Auto) Lymph % (Auto) [place] % (Auto) Eos % (Auto) Baso % (Auto) Neut # (Auto) Lymph # (Auto) [place] # (Auto) Eos # (Auto) Baso # (Auto) WBC Differential Differential Comment D-Dimer Quant (PE/DVT) Sodium 139 Potassium 2.6 L* Chloride 98 Carbon Dioxide 34.8 H Anion Gap 6 BUN 13 Creatinine 1.04 Estimated GFR Greater than 89 Random Glucose 142 H Calcium 8.7 Magnesium Cancelled Total Bilirubin AST ALT Alkaline Phosphatase Total Creatine Kinase 186 194 Troponin I Less than 0.02 L Total Protein Albumin Triglycerides 119 Cholesterol 181 LDL Cholesterol, Calc 129 H HDL Cholesterol 28.5 L Cholesterol/HDL Ratio 6.35 Lipase 12/13/17 12/13/17 12/13/17 08:59 08:59 12:44 WBC 7.0 RBC 5.09 Hgb 14.3 Hct 41.6 MCV 81.8 MCH 28.1 MCHC 34.3 RDW 15.9 Plt Count 236 MPV 8.1 Neut % (Auto) 70.3 H Lymph % (Auto) 20.2 [place] % (Auto) 7.6 Eos % (Auto) 1.5 Baso % (Auto) 0.4 Neut # (Auto) 4.9 Lymph # (Auto) 1.4 [place] # (Auto) 0.5 Eos # (Auto) 0.1 Baso # (Auto) 0.0 WBC Differential . Differential Comment Auto diff final D-Dimer Quant (PE/DVT) Sodium Potassium 2.9 L* Chloride Carbon Dioxide Anion Gap BUN Creatinine Estimated GFR Random Glucose Calcium Magnesium 2.1 Total Bilirubin AST ALT Alkaline Phosphatase Total Creatine Kinase 177 Troponin I Less than 0.02 L Total Protein Albumin Triglycerides Cholesterol LDL Cholesterol, Calc HDL Cholesterol Cholesterol/HDL Ratio Lipase Result Diagrams: 12/13/17 08:59 12/13/17 12:44 Imaging: ITS Impressions Chest X-Ray 12/12/17 21:31 CONCLUSION: No acute cardiopulmonary process. Abdomen/Pelvis CT 12/12/17 22:24 CONCLUSION: 1. Mass at the posterior inferior bladder floor region representing either an impression from an enlarged prostate versus an intrinsic bladder mass. Urology consultation would be recommended. 2. Mild hepatic steatosis. There is a small hypodense mass at the inferior aspect of the right lobe liver which is too small to further characterize. It likely represents a small cyst or hemangioma. 3. Scattered colonic diverticula. Assessment and Plan - Plan 47y.o m with history as per HPI consulted for ? bladder mass vs enlarged prostate seen on CT scan Pt denies any issues - Continue care as per primary team - no acute intervention needed - Bladder scan / PVR after voiding to make sure pt is not retaining urine. If retaining >250cc place saavedra and increase flomax to BID - Pt will need to see a Urologist after discharge for cystoscopy as an outpt to r/o bladder mass which is less likely Discussed Condition With: Dr Madhuri ROSAS attending who agrees with this plan
[2017-12-13] MEDS: Temazepam 15 MG Capsule PO PRN (20:09)
[2017-12-14] MEDS: Aspirin 325 MG Tablet PO SCH (08:30)
[2017-12-14] MEDS: Potassium Chloride 10 MEQ ER Capsule PO SCH ×2 (08:30→20:52)
[2017-12-14] MEDS: amLODIPine 10 MG Tablet PO SCH (08:31)
[2017-12-14] MEDS ORDERED: Regadenoson Inj 0.4 MG/5 ML Syringe IV.PUSH ONE (13:39)
--- NOTE | 2017-12-14 14:47 | NM ---
EXAM DATE: 12/14/2017 2:30 PM EDT AGE/SEX: 47 years / Male INDICATIONS:Angina. . Chest pain. CLINICAL DATA: This is the patient's initial encounter. Patient reports that signs and symptoms have been present for 1 day and indicates a pain score of 5/10. MEDICAL/SURGICAL HISTORY: Hypertension. Umbilical hernia repair. COMPARISON: No prior exams available for comparison. DOSE: 8.6 mCi Tc 99m Myoview at rest 25.4 mCi [id number] at stress 0.4 mg Lexiscan STRESS SYMPTOMS: Dyspnea and heart racing. EJECTION FRACTION: 60 % TECHNIQUE: The patient underwent pharmacologic stress with infusion of prescribed dose. Continuous ECG tracing was monitored during stress. Gated SPECT imaging was performed after stress and conventi onal SPECT imaging was performed at rest. The examination was performed on a SPECT/CT scanner, both attenuation and non-corrected datasets were reviewed. FINDINGS: Distribution: The maximum perfused segment at stress is in the anterior and septal wall. Perfusion Study: The pattern of perfusion at stress is within normal limits. Gated Study: There are intact wall motion and wall thickening without hypokinetic or dyskinetic segm ents. The ejection fraction is calculated at 60%. RISK CATEGORY: Low (<1% Annual Mortality Rate) CONCLUSION: 1. Negative examination. Electronically signed by: Tim Hutchison MD 12/14/2017 2:45 PM EDT
--- NOTE | 2017-12-14 16:26 | P.PNIM ---
Subjective Interval history: Follow up chest pain and hypokalemia Patient denies chest pain Physical Exam Vital signs: Vital Signs 12/13/17 17:00 12/13/17 17:07 12/13/17 19:00 Temperature Pulse Rate 106 H 113 H 93 H Respiratory Rate Blood Pressure Pulse Oximetry 12/13/17 20:00 12/13/17 21:00 12/13/17 22:00 Temperature 98.6 F Pulse Rate 90 90 83 Respiratory Rate 16 Blood Pressure 129/89 Pulse Oximetry 96 12/13/17 23:00 12/14/17 00:00 12/14/17 01:00 Temperature 97.5 F L Pulse Rate 86 81 75 Respiratory Rate 16 Blood Pressure 130/78 Pulse Oximetry 98 12/14/17 02:00 12/14/17 03:00 12/14/17 04:00 Temperature 98.3 F Pulse Rate 71 77 74 Respiratory Rate 14 Blood Pressure 105/68 Pulse Oximetry 97 12/14/17 05:00 12/14/17 06:00 12/14/17 07:00 Temperature Pulse Rate 78 74 76 Respiratory Rate Blood Pressure Pulse Oximetry 12/14/17 08:00 12/14/17 09:00 12/14/17 10:00 Temperature 97.8 F Pulse Rate 78 81 73 Respiratory Rate 18 Blood Pressure 113/75 Pulse Oximetry 97 12/14/17 11:00 12/14/17 12:00 12/14/17 14:53 Temperature 97.9 F Pulse Rate 75 87 Respiratory Rate 18 Blood Pressure 132/75 Pulse Oximetry 97 97 Intake & Output 12/13/17 12/14/17 12/14/17 18:59 06:59 18:59 Intake Total 1560 / 1560 480 / 480 Output Total 775 / 775 Balance 785 / 785 480 / 480 Weight 88 kg Intake: IV 300 / 300 KCl 20 mEq Premix Inj 20 meq In 300 / 300 100 ml @ 50 mls/hr IV.SIG Q2H [facility] Rx#:[id number] Oral 1260 / 1260 480 / 480 Output: Urine 775 / 775 Other: # Voids 3 Date of Last Bowel Movement 12/13/17 12/13/17 12/14/17 # Bowel Movements 1 Narrative: GENERAL: This is a well-nourished, well-developed patient, in no apparent distress. CARDIOVASCULAR: Regular rate and rhythm without murmurs, gallops, or rubs. RESPIRATORY: Clear to auscultation. Breath sounds equal bilaterally. No wheezes , rales, or rhonchi. GASTROINTESTINAL: Abdomen soft, non-tender, nondistended. Normal active bowel sounds MUSCULOSKELETAL: Extremities without clubbing, cyanosis, or edema. NEURO: Alert & Oriented x4 to person, place, time, situation. Moves all ext x4 Results - Labs CBC & Chem 7: 12/13/17 08:59 12/15/17 06:13 Laboratory Results - last 24 hr 12/14/17 11:25 Potassium 2.9 L* - Imaging Impressions Myocardial Perfusion Scan Nuc Med 12/14/17 00:00 CONCLUSION: 1. Negative examination. Assessment and Plan - Assessment (1) Chest pain Code(s): R07.9 - Chest pain, unspecified Status: Acute Plan: This is a 47-year-old male with a past medical history which includes KERON ( reports being noncompliant with his BiPap), BPH, HTN presented to the ED via EMS for evaluation of midsternal/epigastric pain. Patient reports that the midsternal/epigastric pain started while he was flying home from [facility] began suddenly ~4pm 12/12. Described as sharp and squeezing. Accompanied by diaphoretic palms and SOB. There was a doctor on board who evaluated him and gave him 2 aspirin. Upon landing and attempting to depart the aircraft the patient had an episode of 7/10 RLQ pain. This lasted a few minutes before resolving spontaneously. On presentation the patient states that the pain is "minimal." He denies recent history of fevers, chills, chest pain, palpitations, N/V, dysuria, hematuria, back pain. He is a nonsmoker. He endorses fatal IL in a grandfather age~40. He endorses IL in a second grandfather later in life. He has never had a stress test. Chest pain Family history of IL at a young age Chest X-Ray 12/12/17 No acute cardiopulmonary process serial troponin troponin < 0.02 x 3 Initial EKG SR rate [address] Chest pain resolved Lexiscan 12/14 conclusion Negative examination. Hypokalemia potassium 2.3 on admission -> 2.9 (12/13) -> 2.9 (12/14) replaced Potassium chloride 40 meq PO x 2 doses Mag 2.1 Hold patient's home dieretic potassium replaced recheck in AM KERON Patient may use home BiPapa BPH Continue home Tamsulosin HTN Continue home amlodipine Abnormal CT scan reviewed and reveals: 1. Mass at the posterior inferior bladder floor region representing either an impression from an enlarged prostate versus an intrinsic bladder mass. Urology consultation would be recommended. 2. Mild hepatic steatosis. There is a small hypodense mass at the inferior aspect of the right lobe liver which is too small to further characterize. It likely represents a small cyst or hemangioma. 3. Scattered colonic diverticula. Consult to urology. Urology recommending follow up as outpatient Plan to DC in AM if potassium improved - Attending Attestation The exam, history, and the medical decision-making described in the above note were completed with the assistance of the mid-level provider. I reviewed and agree with the findings presented. I attest that I had a [id number] encounter with the patient on the same day, and personally performed and documented my assessment and findings in the medical record. Patient examined. Assessment and plan formulated with Uma Dueñas PA-C. I agree with the above.
--- NOTE | 2017-12-14 18:53 | CT ---
EXAM DATE: 12/14/2017 6:50 PM EDT AGE/SEX: 47 years / Male INDICATIONS: Chest Pain CLINICAL DATA: This is the patient's initial encounter. Patient reports that signs and symptoms have been present for 1 day and indicates a pain score of 0/10. MEDICAL/SURGICAL HISTORY: Hypertension. . Hernia repair RADIATION DOSE: 19.30 CTDI (mGy) COMPARISON: No prior exams available for comparison. TECHNIQUE: Volumetric scanning was performed using a multi-row detector CT scanner during bolus infu quin of 74ML ml Omnipaque 350 (iohexol) nonionic water-soluble contrast as a single exam dose. The d seven was post processed with a variety of visualization algorithms including full volume maximum inten sity projection and sliding thin slab reformation. Using automated exposure control and adjustment o f the mA and/or kV according to patient size, radiation dose was kept as low as reasonably achievable to obtain optimal diagnostic quality images. DICOM format image data is available electronically fo r review and comparison. FINDINGS: Pulmonary Arteries: No filling defects are seen in the pulmonary arteries out to the subsegmental ve ssels. The left and right pulmonary arteries are normal in diameter. Lung: No infiltrates seen. Effusion: None. Mediastinum: No evidence of mediastinal or hilar adenopathy. Other: The axilla is unremarkable. CONCLUSION: Negative exam. No acute infiltrate or pulmonary embolus to explain current clinical symptoms. Electronically signed by: Oneal Gomez MD 12/14/2017 6:52 PM EDT
[2017-12-14] MEDS: Temazepam 15 MG Capsule PO PRN (20:52)
[2017-12-15 00:23] VITALS: RESP 18
[2017-12-15 07:53] LABS: Anion Gap 7 meq/L (5-15); Blood Urea Nitrogen 12 mg/dL (7-18); Calcium 8.6 mg/dL (8.5-10.1); Chloride 101 meq/L (98-107); Glomerular Filtration Rate Greater Than 89 mL/min (>89); Glucose,Random 101 mg/dL (74-106); Potassium 3.3 meq/L (3.5-5.1); Sodium 140 meq/L (136-145)
[2017-12-15] MEDS: Aspirin 325 MG Tablet PO SCH (08:47)
[2017-12-15] MEDS: amLODIPine 10 MG Tablet PO SCH (08:47)
[2017-12-15] MEDS: Potassium Chloride 10 MEQ ER Capsule PO SCH (08:47)
--- NOTE | 2017-12-15 11:04 | P.DS ---
<Uma Dueñas W - Last Filed: 12/15/17 11:31> Date of admission: 12/13/17 00:21 Primary care physician: Albin Issa III, MD Attending physician on discharge: Ricco Kenny Anticipated date of discharge: 12/15/17 Brief History from admission: This is a 47-year-old male with a past medical history which includes KERON ( reports being noncompliant with his BiPap), BPH, HTN presented to the ED via EMS for evaluation of midsternal/epigastric pain. Patient reports that the midsternal/epigastric pain started while he was flying home from [place] [employer] began suddenly ~4pm 12/12. Described as sharp and squeezing. Accompanied by diaphoretic palms and SOB. There was a doctor on board who evaluated him and gave him 2 aspirin. Upon landing and attempting to depart the aircraft the patient had an episode of 7/10 RLQ pain. This lasted a few minutes before resolving spontaneously. On presentation the patient states that the pain is "minimal." He denies recent history of fevers, chills, chest pain, palpitations, N/V, dysuria, hematuria, back pain. He is a nonsmoker. He endorses fatal [place] in a grandfather age~40. He endorses [place] in a second grandfather later in life. He has never had a stress test. PMH: KERON (reports being noncompliant with his BiPap), BPH, HTN PSxH: Hernia repair FMH: fatal [place] in a grandfather age~40. He endorses [place] in a second grandfather later in life Social History: Occasional EtOH use approximately once per month Lifelong non-smoker DS: Diagnosis - Discharge Diagnosis (1) Chest pain Status: Acute DS: Medications - Discharge Medications Prescriptions: potassium chloride 20 meq PO BID 5 Days each DS: Summary Hospital Course: This is a 47-year-old male with a past medical history which includes KERON ( reports being noncompliant with his BiPap), BPH, HTN presented to the ED via EMS for evaluation of midsternal/epigastric pain. Patient reports that the midsternal/epigastric pain started while he was flying home from [place] began suddenly ~4pm 12/12. Described as sharp and squeezing. Accompanied by diaphoretic palms and SOB. There was a doctor on board who evaluated him and gave him 2 aspirin. Upon landing and attempting to depart the aircraft the patient had an episode of 7/10 RLQ pain. This lasted a few minutes before resolving spontaneously. On presentation the patient states that the pain is "minimal." He denies recent history of fevers, chills, chest pain, palpitations, N/V, dysuria, hematuria, back pain. He is a nonsmoker. He endorses fatal [place] in a grandfather age~40. He endorses [place] in a second grandfather later in life. He has never had a stress test. Chest pain Family history of [place] at a young age Chest X-Ray 12/12/17 No acute cardiopulmonary process serial troponin troponin < 0.02 x 3 Initial EKG SR rate [address] Chest pain resolved Lexiscan 12/14 report Negative examination. Hypokalemia potassium 2.3 on admission -> 2.9 (12/13) -> 2.9 (12/14) -> 3.3 (12/15) replaced Potassium chloride Mag 2.1 Hold patient's home dieretic BMP replaced recheck as an outpatient with results to PCP KERON Patient may use home BiPapa BPH Continue home Tamsulosin HTN Continue home amlodipine Abnormal CT scan reviewed and reveals: 1. Mass at the posterior inferior bladder floor region representing either an impression from an enlarged prostate versus an intrinsic bladder mass. Urology consultation would be recommended. 2. Mild hepatic steatosis. There is a small hypodense mass at the inferior aspect of the right lobe liver which is too small to further characterize. It likely represents a small cyst or hemangioma. 3. Scattered colonic diverticula. Consult to urology. Urology recommending follow up as outpatient - Time Spent with Patient Total time spent providing and/or coordinating discharge services: Greater than 30 minutes - Quality: VTE Deep Vein Thrombosis/Pulmonary Embolism Present on Admission: No Exam Vital signs: Vital Signs 12/14/17 12:00 12/14/17 14:53 12/14/17 15:00 Temperature 97.9 F Pulse Rate 87 94 H Respiratory Rate 18 Blood Pressure 132/75 Pulse Oximetry 97 97 12/14/17 16:00 12/14/17 17:00 12/14/17 18:00 Temperature 98.1 F Pulse Rate 105 H 93 H 96 H Respiratory Rate 18 Blood Pressure 141/85 H Pulse Oximetry 99 12/14/17 19:00 12/14/17 20:00 12/14/17 21:00 Temperature 98.3 F Pulse Rate 103 H 110 H 108 H Respiratory Rate 20 Blood Pressure 141/86 H Pulse Oximetry 97 12/14/17 22:00 12/14/17 23:00 12/15/17 00:00 Temperature 98.1 F Pulse Rate 101 H 96 H 98 H Respiratory Rate 18 Blood Pressure 127/80 Pulse Oximetry 96 12/15/17 01:00 12/15/17 02:00 12/15/17 03:00 Temperature Pulse Rate 89 87 85 Respiratory Rate Blood Pressure Pulse Oximetry 12/15/17 03:51 12/15/17 04:00 12/15/17 05:00 Temperature 98 F Pulse Rate 80 80 82 Respiratory Rate 18 Blood Pressure 134/89 Pulse Oximetry 97 12/15/17 06:00 12/15/17 07:00 12/15/17 07:27 Temperature Pulse Rate 79 79 72 Respiratory Rate Blood Pressure Pulse Oximetry 12/15/17 08:00 12/15/17 09:00 12/15/17 09:32 Temperature 98.1 F Pulse Rate 94 H 71 70 Respiratory Rate 18 Blood Pressure 144/87 H Pulse Oximetry 97 12/15/17 09:33 Temperature Pulse Rate Respiratory Rate Blood Pressure Pulse Oximetry 97 Intake & Output 12/14/17 12/15/17 12/15/17 18:59 06:59 18:59 Intake Total 750 / 750 480 / 480 Output Total 900 / 900 Balance 750 / 750 -420 / -420 Weight 87 kg Intake: Oral 750 / 750 480 / 480 Output: Urine 900 / 900 Other: # Voids 6 3 Date of Last Bowel Movement 12/14/17 12/14/17 12/14/17 # Bowel Movements 2 0 Narrative: GENERAL: This is a well-nourished, well-developed patient, in no apparent distress. CARDIOVASCULAR: Regular rate and rhythm RESPIRATORY: Clear to auscultation. Breath sounds equal bilaterally. GASTROINTESTINAL: Abdomen soft, non-tender, nondistended. Normal active bowel sounds MUSCULOSKELETAL: Extremities without clubbing, cyanosis, or edema. NEURO: Alert & Oriented x4 to person, place, time, situation. Moves all ext x4 Results Procedures completed during hospitalization: None Labs on day of discharge: Labs from last 24 hours 12/15/17 12/14/17 12/14/17 06:13 18:24 11:25 Sodium 140 Potassium 3.3 L 3.0 L 2.9 L* Chloride 101 Carbon Dioxide 32.0 Anion Gap 7 BUN 12 Creatinine 0.98 Estimated GFR Greater than 89 Random Glucose 101 Calcium 8.6 - Impressions ITS Impressions Chest X-Ray 12/12/17 21:31 CONCLUSION: No acute cardiopulmonary process. Abdomen/Pelvis CT 12/12/17 22:24 CONCLUSION: 1. Mass at the posterior inferior bladder floor region representing either an impression from an enlarged prostate versus an intrinsic bladder mass. Urology consultation would be recommended. 2. Mild hepatic steatosis. There is a small hypodense mass at the inferior aspect of the right lobe liver which is too small to further characterize. It likely represents a small cyst or hemangioma. 3. Scattered colonic diverticula. Chest CTA 12/14/17 00:00 CONCLUSION: Negative exam. No acute infiltrate or pulmonary embolus to explain current clinical symptoms. Myocardial Perfusion Scan Nuc Med 12/14/17 00:00 CONCLUSION: 1. Negative examination. <Ricco Kenny B - Last Filed: 12/16/17 08:25> Date of admission: 12/13/17 00:21 Primary care physician: Albin Issa III, MD DS: Diagnosis - Discharge Diagnosis (1) Chest pain Status: Acute DS: Summary Hospital Course: The exam, history, and the medical decision-making described in the above note were completed with the assistance of the mid-level provider. I reviewed and agree with the findings presented. I attest that I had a [id number] encounter with the patient on the same day, and personally performed and documented my assessment and findings in the medical record. Patient examined. Assessment and plan formulated with Uma Dueñas PA-C. I agree with the above. - Time Spent with Patient Total time spent providing and/or coordinating discharge services: Greater than 30 minutes Exam Vital signs: Vital Signs 12/15/17 09:00 12/15/17 09:32 12/15/17 09:33 Temperature Pulse Rate 71 70 Respiratory Rate Blood Pressure Pulse Oximetry 97 12/15/17 11:00 12/15/17 12:00 Temperature 98.0 F Pulse Rate 89 85 Respiratory Rate 18 Blood Pressure 142/87 H Pulse Oximetry 96 Intake & Output 12/15/17 12/16/17 12/16/17 18:59 06:59 18:59 Other: Date of Last Bowel Movement 12/14/17 Results - Impressions ITS Impressions Chest X-Ray 12/12/17 21:31 CONCLUSION: No acute cardiopulmonary process. Abdomen/Pelvis CT 12/12/17 22:24 CONCLUSION: 1. Mass at the posterior inferior bladder floor region representing either an impression from an enlarged prostate versus an intrinsic bladder mass. Urology consultation would be recommended. 2. Mild hepatic steatosis. There is a small hypodense mass at the inferior aspect of the right lobe liver which is too small to further characterize. It likely represents a small cyst or hemangioma. 3. Scattered colonic diverticula. Chest CTA 12/14/17 00:00 CONCLUSION: Negative exam. No acute infiltrate or pulmonary embolus to explain current clinical symptoms. Myocardial Perfusion Scan Nuc Med 12/14/17 00:00 CONCLUSION: 1. Negative examination. Discharge Plan - Discharge Order Discharge Orders: Discharge Order (Routine); Ordered 12/15/17 Ordered By: Uma Dueñas - Discharge Details Anticipated Discharge Date: 12/15/17 - Physicians Team Primary Care Provider: Albin Issa III Attending Provider: Ricco Kenny Other Providers: Quique Dhaliwal MD
[2017-12-15 12:05] VITALS: BP 142/87; TEMP 98; O2SAT 96
[2017-12-15 12:14] VITALS: PULSE 85
--- NOTE | 2017-12-17 18:09 | ECG ---
Date Performed: 12/13/2017 Time Performed: 14:10:30 PTAGE: 47 years EKG: Sinus rhythm Inferior T wave changes are nonspecific Borderline ECG PREVIOUS TRACING : 12/13/2017 06.14 Since the previous tracing, no significant change noted DOCTOR: Rian Bassett Interpretating Date/Time 12/17/2017 18:08:01
== END 2017-12-15 13:05 | disposition home or self-care (01) ==
LOC: NEPE 21:07 → NEDA 21:07 → HCIS 12-13 03:26
PROVIDERS: ADMIT Hospitalist; ATTEND Hospitalist